=== PATIENT | female | born 1940 | race Caucasian/White ===

== ENCOUNTER → 2018-03-12 | Outpatient (CLI) | payer MEDICARE, OTHER ==
[2014-08-18 13:25] VITALS: BP 160/83
[~2018-03-12] MED LIST: ONDA4TAB7 PO; OSEL75CA PO
--- NOTE | 2018-03-12 10:01 | RAD ---
Examination: CT head and cervical spine without contrast HISTORY: History of headache, neck pain Exposure: One or more of the following individualized dose reduction techniques were utilized for this examination: 1. Automated exposure control 2. Adjustment of the mA and/or kV according to patient size 3. Use of iterative reconstruction technique CT HEAD INDICATION: HEADACHE FOR AWHILE WITH NECK PAIN COMPARISON: None Available. TECHNIQUE: 5 mm contiguous axial images were obtained from the skull base to the vertex in both bone and soft tissue algorithm. FINDINGS: No abnormal attenuation within the brain parenchyma. No evidence of acute intracranial hemorrhage. No extra-axial fluid collections. No mass effect or midline shift. Ventricular size is appropriate. Basal cisterns are patent. No fractures identified.Mejia-white differentiation is preserved.Globes and orbits are within normal limits. Paranasal sinuses and mastoid air cells are clear. IMPRESSION: No acute intracranial findings. CT CERVICAL SPINE INDICATION: HEADACHE FOR AWHILE WITH NECK PAIN COMPARISON: None Available. Technique: 2.5 mm contiguous axial images were obtained from the skull base through the cervicothoracic junction in both bone and soft tissue algorithm. Additional sagittal and coronal reconstructions were also performed. FINDINGS: Vertebral body heights are maintained. The lateral masses of C1 are aligned upon C2. No fractures identified. Moderate intervertebral disc height loss identified throughout cervical spine with small anterior and posterior osteophyte formation at C3-C4, C4-C5, C5-C6, C6-C7 vertebral levels. There is mild 3 mm anterolisthesis of C7 on T1. There is 1 mm retrolisthesis of C5 on C6 and C4 on C5. The paraspinous soft tissues are unremarkable. Visualized intracranial contents are unremarkable. Mild bilateral apical lung scarring changes.. IMPRESSION: 1. No acute fracture of the cervical spine. Correlate clinically. 2. Moderate degenerative changes cervical spine. 3 mm anterolisthesis of C7 on T1 and 1 mm retrolisthesis of C4 on C5 and C5 on C6. Electronically signed by: Stoney Haynes MD (03/12/2018 9:57 AM) [id number]
== END | disposition home or self-care (01) ==
LOC: PMG 08:42
PROVIDERS: ATTEND Neuromusculoskeletal Medicine & OMM
DX: M25.78 Osteophyte, vertebrae (principal); M43.13 Spondylolisthesis, cervicothoracic region; M43.12 Spondylolisthesis, cervical region; R51 Headache
CPT/HCPCS: 70450; 72125

== ENCOUNTER → 2018-04-04 | Outpatient (CLI) | payer MEDICARE, OTHER ==
[2014-08-18 13:25] VITALS: BP 160/83
--- NOTE | 2018-04-04 15:33 | RAD ---
EXAM: Cervical spine, 5 views. HISTORY: Pain. COMPARISON: None. FINDINGS: 5 views of the cervical spine are obtained. There is slight reversal of cervical lordosis. There is mild anterolisthesis of C2 on C3 and C7 on T1 and minimal retrolisthesis of C3-4 on C5 and C5 on C6. There is degenerative endplate remodeling with disc space narrowing and osteophytosis primarily at C3-C6. There is facet arthropathy at multiple levels. There is foraminal stenosis primarily at C4-C5. No fracture is seen. IMPRESSION: 1. Multilevel degenerative change throughout the cervical spine, described above. 2. No acute osseous finding. Electronically signed by: Sherin Mcdonough MD (04/04/2018 3:30 PM) [facility] [place]
== END | disposition home or self-care (01) ==
LOC: DXRAD 10:47
PROVIDERS: ATTEND Psychiatry & Neurology Neurology
DX: M47.892 Other spondylosis, cervical region (principal); M48.02 Spinal stenosis, cervical region; M12.88 Other specific arthropathies, not elsewhere classified, other specified site
CPT/HCPCS: 72050